=== PATIENT | female | born 1965 ===

== ENCOUNTER 2017-10-22 06:40 | Emergency (ER) | payer OTHER ==
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
[2017-10-22 09:17] VITALS: BP 119/78; PULSE 70; RESP 18; TEMP 98.3; O2SAT 99
== END 2017-10-22 09:23 | disposition home or self-care (01) ==
LOC: ED 06:40
DX: S09.90XA Unspecified injury of head, initial encounter (principal); V49.9XXA Car occupant (driver) (passenger) injured in unspecified traffic accident, initial encounter